=== PATIENT | female | born 1955 | race Caucasian/White ===

== ENCOUNTER 2020-08-07 17:14 | Inpatient (IN) ==
[2020-08-07] MEDS ORDERED: Ondansetron ODT 4 MG TAB.RAPDIS SL PRN (22:37)
[2020-08-08] MEDS: Furosemide 20 MG/2 ML VIAL IVP SCH ×2 (00:20→07:39)
[2020-08-08 04:15] LABS: Hematocrit 38.6 % (35.3-44.9); Hemoglobin 12.2 g/dL (11.5-15.4); Mean Corpuscular HGB Conc 31.6 g/dL (31.6-35.5); Mean Corpuscular Hemoglobin 28.5 pg (28.0-33.3); Mean Corpuscular Volume 90.2 fL (83.0-100.0); Platelet Count 253 K/mcL (140-400); Red Blood Count 4.28 M/mcL (3.82-4.97); Red Cell Distribution Width 14.5 % (11.5-14.5); White Blood Count 6.1 K/mcL (4.3-11.1)
[2020-08-08 04:32] LABS: BUN/Creatinine Ratio 24 (6-26); Blood Urea Nitrogen 14 mg/dL (8-23); Calcium 8.4 mg/dL (8.6-10.3); Carbon Dioxide 20 mEq/L (23-29); Chloride 101 mEq/L (98-107); Glucose 218 mg/dL (70-105); Osmolality,Calculated 287 (280-300); Sodium 135 mEq/L (136-145); eGFR For African Americans > 60 (> 60); eGFR For Non-African Americans > 60 (> 60)
[2020-08-08] MEDS: *HR* Enoxaparin 40 MG/0.4 ML SYRINGE SQ SCH (06:41)
[2020-08-08] MEDS: Dexamethasone 4 MG/ML VIAL IVP SCH (07:39)
[2020-08-08] MEDS: Acetaminophen 325 MG TABLET PO PRN (07:50)
[2020-08-09] MEDS: *HR* Enoxaparin 40 MG/0.4 ML SYRINGE SQ SCH (05:43)
[2020-08-09] MEDS: Acetaminophen 325 MG TABLET PO PRN ×2 (05:46→22:34)
[2020-08-09 06:07] LABS: Basophils % 0.1 %; Hematocrit 38.1 % (35.3-44.9); Immature Granulocytes % 0.8 % (0-4); Lymphocytes % 6.4 %; Mean Corpuscular HGB Conc 31.5 g/dL (31.6-35.5); Mean Corpuscular Hemoglobin 28.8 pg (28.0-33.3); Mean Corpuscular Volume 91.4 fL (83.0-100.0); Mean Platelet Volume 10.6 fL (9.4-12.4); Monocytes # 0.7 K/mcL (0.0-1.3); Monocytes % 4.6 %; Neutrophils # 13.2 K/mcL (1.6-8.9); Platelet Count 305 K/mcL (140-400); Red Blood Count 4.17 M/mcL (3.82-4.97); Red Cell Distribution Width 14.4 % (11.5-14.5); Segmented Neutrophils % 88.1 %
[2020-08-09] MEDS: Aspirin Enteric Coated 81 MG Tablet PO SCH (07:19)
[2020-08-09] MEDS: Dexamethasone 4 MG/ML VIAL IVP SCH (07:19)
[2020-08-09] MEDS: Furosemide 20 MG/2 ML VIAL IVP SCH (07:19)
[2020-08-09 10:57] LABS: BUN/Creatinine Ratio 29 (6-26); Blood Urea Nitrogen 23 mg/dL (8-23); Carbon Dioxide 22 mEq/L (23-29); Chloride 102 mEq/L (98-107); Glucose 194 mg/dL (70-105); Osmolality,Calculated 293 (280-300); Potassium 4.3 mEq/L (3.5-5.1); Sodium 137 mEq/L (136-145); eGFR For African Americans > 60 (> 60); eGFR For Non-African Americans > 60 (> 60)
[2020-08-09] MEDS: Artificial Tears SOLN 15 ML BOTTLE BOTH EYES SCH (12:43)
[2020-08-10] MEDS: Artificial Tears SOLN 15 ML BOTTLE BOTH EYES SCH ×2 (01:55→19:56)
[2020-08-10] MEDS: *HR* Enoxaparin 40 MG/0.4 ML SYRINGE SQ SCH (05:54)
[2020-08-10 06:47] LABS: Basophils % 0.2 %; Hemoglobin 11.5 g/dL (11.5-15.4); Immature Granulocytes % 2.2 % (0-4); Lymphocytes # 1.1 K/mcL (0.6-4.6); Lymphocytes % 9.2 %; Mean Corpuscular HGB Conc 31.9 g/dL (31.6-35.5); Mean Corpuscular Hemoglobin 28.8 pg (28.0-33.3); Mean Corpuscular Volume 90.2 fL (83.0-100.0); Mean Platelet Volume 10.5 fL (9.4-12.4); Monocytes # 0.6 K/mcL (0.0-1.3); Monocytes % 5.5 %; Neutrophils # 9.4 K/mcL (1.6-8.9); Platelet Count 307 K/mcL (140-400); Red Blood Count 3.99 M/mcL (3.82-4.97); Red Cell Distribution Width 14.4 % (11.5-14.5); Segmented Neutrophils % 82.9 %; White Blood Count 11.4 K/mcL (4.3-11.1)
[2020-08-10 07:07] LABS: BUN/Creatinine Ratio 46 (6-26); Blood Urea Nitrogen 27 mg/dL (8-23); Calcium 8.8 mg/dL (8.6-10.3); Carbon Dioxide 26 mEq/L (23-29); Chloride 103 mEq/L (98-107); Glucose 132 mg/dL (70-105); Osmolality,Calculated 291 (280-300); Potassium 4.3 mEq/L (3.5-5.1); Sodium 137 mEq/L (136-145); eGFR For African Americans > 60 (> 60); eGFR For Non-African Americans > 60 (> 60)
[2020-08-10] MEDS ORDERED: Furosemide 20 MG TABLET PO SCH (09:00)
[2020-08-10] MEDS: Spironolactone 25 MG TABLET PO SCH (10:08)
[2020-08-10] MEDS: Aspirin Enteric Coated 81 MG Tablet PO SCH (10:08)
[2020-08-10] MEDS: Dexamethasone 4 MG/ML VIAL IVP SCH (10:09)
[2020-08-10] MEDS: Furosemide 40 MG/4 ML VIAL IVP SCH (10:09)
[2020-08-10] MEDS: Acetaminophen 325 MG TABLET PO PRN (10:43)
[2020-08-10 15:24] LABS: Estimated Average Glucose 157 mg/dl
[2020-08-11] MEDS ORDERED: 0.9 % Sodium Chloride 250 ML ONE (00:06)
[2020-08-11] MEDS: Acetaminophen 325 MG TABLET PO PRN ×2 (03:33→20:37)
[2020-08-11] MEDS: *HR* Enoxaparin 40 MG/0.4 ML SYRINGE SQ SCH (08:01)
[2020-08-11] MEDS: Aspirin Enteric Coated 81 MG Tablet PO SCH (08:02)
[2020-08-11] MEDS: Spironolactone 25 MG TABLET PO SCH (08:02)
[2020-08-11] MEDS: Dexamethasone 4 MG/ML VIAL IVP SCH (08:02)
[2020-08-11] MEDS ORDERED: *HR* LORazepam 2 MG/ML VIAL ONE (08:36)
[2020-08-11] MEDS ORDERED: *HR* LORazepam 2 MG/ML VIAL IVP ONE (09:29)
[2020-08-11 10:22] LABS: Basophils # 0.1 K/mcL (0.0-0.2); Basophils % 0.4 %; Eosinophils % 0.1 %; Hematocrit 37.2 % (35.3-44.9); Hemoglobin 11.6 g/dL (11.5-15.4); Immature Granulocytes % 3.9 % (0-4); Lymphocytes % 7.1 %; Mean Corpuscular HGB Conc 31.2 g/dL (31.6-35.5); Mean Corpuscular Hemoglobin 28.4 pg (28.0-33.3); Mean Corpuscular Volume 91.2 fL (83.0-100.0); Mean Platelet Volume 10.8 fL (9.4-12.4); Monocytes # 0.6 K/mcL (0.0-1.3); Monocytes % 4.4 %; Neutrophils # 11.3 K/mcL (1.6-8.9); Platelet Count 316 K/mcL (140-400); Red Blood Count 4.08 M/mcL (3.82-4.97); Red Cell Distribution Width 14.1 % (11.5-14.5); Segmented Neutrophils % 84.1 %; White Blood Count 13.5 K/mcL (4.3-11.1)
[2020-08-11 10:41] LABS: BUN/Creatinine Ratio 47 (6-26); Blood Urea Nitrogen 26 mg/dL (8-23); Calcium 8.9 mg/dL (8.6-10.3); Carbon Dioxide 27 mEq/L (23-29); Chloride 101 mEq/L (98-107); Glucose 104 mg/dL (70-105); Osmolality,Calculated 291 (280-300); Potassium 4.5 mEq/L (3.5-5.1); Sodium 138 mEq/L (136-145); eGFR For African Americans > 60 (> 60); eGFR For Non-African Americans > 60 (> 60)
[2020-08-11] MEDS: Furosemide 40 MG/4 ML VIAL IVP SCH (11:22)
[2020-08-11] MEDS ORDERED: *HR* Heparin 5,000 UNIT/ML VIAL IVP PRN ×2 (13:11)
[2020-08-11] MEDS ORDERED: *HR* Heparin 5,000 UNIT/ML VIAL IVP ONE (13:11)
[2020-08-11 14:00] LABS: Hematocrit 39.5 % (35.3-44.9); Hemoglobin 12.2 g/dL (11.5-15.4); Mean Corpuscular HGB Conc 30.9 g/dL (31.6-35.5); Mean Corpuscular Hemoglobin 28.2 pg (28.0-33.3); Mean Corpuscular Volume 91.2 fL (83.0-100.0); Mean Platelet Volume 10.8 fL (9.4-12.4); Platelet Count 337 K/mcL (140-400); Red Blood Count 4.33 M/mcL (3.82-4.97); Red Cell Distribution Width 14.3 % (11.5-14.5); White Blood Count 14.4 K/mcL (4.3-11.1)
[2020-08-11 14:02] LABS: Heparin anti-factor XA UFH 0.12 IU/mL (0.30-0.70)
[2020-08-11 14:03] LABS: INR 1.2; Prothrombin Time 13.9 Seconds (9.4-12.1)
[2020-08-11] MEDS: Heparin 25,000UNIT/250ML 1/2NS 25,000 UNIT/250 ML IV.SOLN IVC SCH (14:41)
[2020-08-11] MEDS: Artificial Tears SOLN 15 ML BOTTLE BOTH EYES SCH (20:15)
[2020-08-12 04:25] LABS: Hematocrit 36.4 % (35.3-44.9); Hemoglobin 11.7 g/dL (11.5-15.4); Mean Corpuscular HGB Conc 32.1 g/dL (31.6-35.5); Mean Corpuscular Hemoglobin 29.1 pg (28.0-33.3); Mean Corpuscular Volume 90.5 fL (83.0-100.0); Mean Platelet Volume 10.6 fL (9.4-12.4); Platelet Count 313 K/mcL (140-400); Red Blood Count 4.02 M/mcL (3.82-4.97); Red Cell Distribution Width 14.2 % (11.5-14.5); White Blood Count 14.1 K/mcL (4.3-11.1)
[2020-08-12] MEDS: Benzonatate 100 MG CAPSULE PO PRN (04:33)
[2020-08-12 05:04] LABS: Lymphocytes # 1.4 K/mcL (0.6-4.6); Monocytes # 0.6 K/mcL (0.0-1.3); Neutrophils # 11.8 K/mcL (1.6-8.9)
[2020-08-12 05:05] LABS: Platelet Estimate Normal (Normal)
[2020-08-12] MEDS: Furosemide 40 MG/4 ML VIAL IVP SCH ×2 (09:55→20:00)
[2020-08-12] MEDS: Dexamethasone Sodium Phos/PF 10 MG/ML VIAL IVP SCH (09:55)
[2020-08-12] MEDS: Aspirin Enteric Coated 81 MG Tablet PO SCH (09:56)
[2020-08-12] MEDS: Spironolactone 25 MG TABLET PO SCH (09:56)
[2020-08-12 10:37] LABS: BUN/Creatinine Ratio 48 (6-26); Blood Urea Nitrogen 28 mg/dL (8-23); Calcium 8.6 mg/dL (8.6-10.3); Carbon Dioxide 25 mEq/L (23-29); Chloride 97 mEq/L (98-107); Glucose 162 mg/dL (70-105); Osmolality,Calculated 287 (280-300); Potassium 4.2 mEq/L (3.5-5.1); Sodium 134 mEq/L (136-145); eGFR For African Americans > 60 (> 60); eGFR For Non-African Americans > 60 (> 60)
[2020-08-12] MEDS: Acetaminophen 325 MG TABLET PO PRN (19:59)
[2020-08-12] MEDS: Artificial Tears SOLN 15 ML BOTTLE BOTH EYES SCH (20:00)
[2020-08-13] MEDS: Benzonatate 100 MG CAPSULE PO PRN ×2 (02:32→22:09)
[2020-08-13 05:35] LABS: Hematocrit 37.3 % (35.3-44.9); Hemoglobin 12.1 g/dL (11.5-15.4); Mean Corpuscular HGB Conc 32.4 g/dL (31.6-35.5); Mean Corpuscular Hemoglobin 28.9 pg (28.0-33.3); Mean Corpuscular Volume 89.2 fL (83.0-100.0); Mean Platelet Volume 10.7 fL (9.4-12.4); Platelet Count 365 K/mcL (140-400); Red Blood Count 4.18 M/mcL (3.82-4.97); Red Cell Distribution Width 13.6 % (11.5-14.5); White Blood Count 15.3 K/mcL (4.3-11.1)
[2020-08-13 05:45] LABS: Heparin anti-factor XA UFH 0.47 IU/mL (0.30-0.70)
[2020-08-13 06:05] LABS: BUN/Creatinine Ratio 44 (6-26); Blood Urea Nitrogen 26 mg/dL (8-23); Calcium 8.9 mg/dL (8.6-10.3); Carbon Dioxide 26 mEq/L (23-29); Chloride 94 mEq/L (98-107); Glucose 223 mg/dL (70-105); Osmolality,Calculated 290 (280-300); Potassium 4.1 mEq/L (3.5-5.1); Sodium 134 mEq/L (136-145); eGFR For African Americans > 60 (> 60); eGFR For Non-African Americans > 60 (> 60)
[2020-08-13 06:19] LABS: Lymphocytes # 0.6 K/mcL (0.6-4.6); Monocytes # 0.3 K/mcL (0.0-1.3); Neutrophils # 14.4 K/mcL (1.6-8.9)
[2020-08-13] MEDS: Furosemide 40 MG/4 ML VIAL IVP SCH ×2 (09:49→22:09)
[2020-08-13] MEDS: Azithromycin 250 MG TABLET PO SCH (09:49)
[2020-08-13] MEDS: Aspirin Enteric Coated 81 MG Tablet PO SCH (09:50)
[2020-08-13] MEDS: Spironolactone 25 MG TABLET PO SCH (09:50)
[2020-08-13] MEDS: Dexamethasone Sodium Phos/PF 10 MG/ML VIAL IVP SCH (09:50)
[2020-08-13] MEDS: Heparin 25,000UNIT/250ML 1/2NS 25,000 UNIT/250 ML IV.SOLN IVC SCH ×3 (10:11→10:58)
[2020-08-13] MEDS: Acetaminophen 325 MG TABLET PO PRN (22:09)
[2020-08-13] MEDS: Cefdinir 300 MG CAPSULE PO SCH (22:10)
[2020-08-13] MEDS: Artificial Tears SOLN 15 ML BOTTLE BOTH EYES SCH (22:10)
[2020-08-14] MEDS ORDERED: *HR* LORazepam 2 MG/ML VIAL IVP ONE ×2 (01:35→22:52)
[2020-08-14 06:38] LABS: Hematocrit 37.1 % (35.3-44.9); Hemoglobin 12.1 g/dL (11.5-15.4); Lymphocytes # 1.4 K/mcL (0.6-4.6); Mean Corpuscular HGB Conc 32.6 g/dL (31.6-35.5); Mean Corpuscular Hemoglobin 29.5 pg (28.0-33.3); Mean Corpuscular Volume 90.5 fL (83.0-100.0); Mean Platelet Volume 10.8 fL (9.4-12.4); Platelet Count 408 K/mcL (140-400); Red Cell Distribution Width 13.7 % (11.5-14.5); White Blood Count 17.2 K/mcL (4.3-11.1)
[2020-08-14 06:55] LABS: BUN/Creatinine Ratio 44 (6-26); Blood Urea Nitrogen 31 mg/dL (8-23); Calcium 9.2 mg/dL (8.6-10.3); Carbon Dioxide 29 mEq/L (23-29); Chloride 93 mEq/L (98-107); Glucose 227 mg/dL (70-105); Magnesium 2.2 mg/dL (1.6-2.6); Monocytes # 0.7 K/mcL (0.0-1.3); Neutrophils # 14.8 K/mcL (1.6-8.9); Osmolality,Calculated 288 (280-300); Potassium 4.5 mEq/L (3.5-5.1); Sodium 132 mEq/L (136-145); eGFR For African Americans > 60 (> 60); eGFR For Non-African Americans > 60 (> 60)
[2020-08-14] MEDS: Cefdinir 300 MG CAPSULE PO SCH ×2 (09:41→21:52)
[2020-08-14] MEDS: Aspirin Enteric Coated 81 MG Tablet PO SCH (09:41)
[2020-08-14] MEDS: Azithromycin 250 MG TABLET PO SCH (09:41)
[2020-08-14] MEDS: Dexamethasone Sodium Phos/PF 10 MG/ML VIAL IVP SCH (09:42)
[2020-08-14] MEDS: Furosemide 40 MG/4 ML VIAL IVP SCH ×2 (09:42→21:53)
[2020-08-14] MEDS: Heparin 25,000UNIT/250ML 1/2NS 25,000 UNIT/250 ML IV.SOLN IVC SCH ×2 (09:43→12:32)
[2020-08-14] MEDS: Acetaminophen 325 MG TABLET PO PRN (21:52)
[2020-08-14] MEDS: Benzonatate 100 MG CAPSULE PO PRN (21:52)
[2020-08-14] MEDS: Artificial Tears SOLN 15 ML BOTTLE BOTH EYES SCH (21:53)
[2020-08-15 04:21] LABS: Hematocrit 38.7 % (35.3-44.9); Hemoglobin 12.5 g/dL (11.5-15.4); Mean Corpuscular HGB Conc 32.3 g/dL (31.6-35.5); Mean Corpuscular Hemoglobin 29.3 pg (28.0-33.3); Mean Corpuscular Volume 90.6 fL (83.0-100.0); Mean Platelet Volume 10.7 fL (9.4-12.4); Nucleated Red Blood Cells 0.1 /100 WBC (0); Platelet Count 468 K/mcL (140-400); Red Blood Count 4.27 M/mcL (3.82-4.97); Red Cell Distribution Width 13.6 % (11.5-14.5); White Blood Count 18.9 K/mcL (4.3-11.1)
[2020-08-15 04:37] LABS: BUN/Creatinine Ratio 62 (6-26); Blood Urea Nitrogen 49 mg/dL (8-23); Carbon Dioxide 29 mEq/L (23-29); Chloride 91 mEq/L (98-107); Glucose 237 mg/dL (70-105); Osmolality,Calculated 293 (280-300); Sodium 131 mEq/L (136-145); eGFR For African Americans > 60 (> 60); eGFR For Non-African Americans > 60 (> 60)
[2020-08-15 04:45] LABS: Magnesium 2.4 mg/dL (1.6-2.6)
[2020-08-15 05:40] LABS: Neutrophils # 15.5 K/mcL (1.6-8.9); Platelet Estimate Normal (Normal)
[2020-08-15] MEDS: Azithromycin 250 MG TABLET PO SCH (08:11)
[2020-08-15] MEDS: Dexamethasone Sodium Phos/PF 10 MG/ML VIAL IVP SCH (08:11)
[2020-08-15] MEDS: Cefdinir 300 MG CAPSULE PO SCH ×2 (08:12→21:39)
[2020-08-15] MEDS: Furosemide 40 MG/4 ML VIAL IVP SCH (08:12)
[2020-08-15] MEDS: Aspirin Enteric Coated 81 MG Tablet PO SCH (08:12)
[2020-08-15] MEDS: Heparin 25,000UNIT/250ML 1/2NS 25,000 UNIT/250 ML IV.SOLN IVC SCH (09:22)
[2020-08-15] MEDS: Artificial Tears SOLN 15 ML BOTTLE BOTH EYES SCH (21:39)
[2020-08-15] MEDS: Benzonatate 100 MG CAPSULE PO PRN (21:39)
[2020-08-15] MEDS: Acetaminophen 325 MG TABLET PO PRN (21:39)
[2020-08-16] MEDS: Heparin 25,000UNIT/250ML 1/2NS 25,000 UNIT/250 ML IV.SOLN IVC SCH (03:14)
[2020-08-16 04:31] LABS: Hematocrit 37.9 % (35.3-44.9); Hemoglobin 12.3 g/dL (11.5-15.4); Mean Corpuscular HGB Conc 32.5 g/dL (31.6-35.5); Mean Corpuscular Hemoglobin 28.9 pg (28.0-33.3); Mean Corpuscular Volume 89.2 fL (83.0-100.0); Mean Platelet Volume 10.9 fL (9.4-12.4); Nucleated Red Blood Cells 0.1 /100 WBC (0); Platelet Count 468 K/mcL (140-400); Red Blood Count 4.25 M/mcL (3.82-4.97); Red Cell Distribution Width 13.4 % (11.5-14.5)
[2020-08-16 04:39] LABS: BUN/Creatinine Ratio 62 (6-26); Blood Urea Nitrogen 42 mg/dL (8-23); Calcium 8.9 mg/dL (8.6-10.3); Carbon Dioxide 28 mEq/L (23-29); Chloride 90 mEq/L (98-107); Glucose 247 mg/dL (70-105); Magnesium 2.3 mg/dL (1.6-2.6); Osmolality,Calculated 287 (280-300); Potassium 4.6 mEq/L (3.5-5.1); Sodium 129 mEq/L (136-145); eGFR For African Americans > 60 (> 60); eGFR For Non-African Americans > 60 (> 60)
[2020-08-16 05:55] LABS: Lymphocytes # 1.3 K/mcL (0.6-4.6); Monocytes # 0.8 K/mcL (0.0-1.3); Neutrophils # 18.9 K/mcL (1.6-8.9); Platelet Estimate Normal (Normal)
[2020-08-16] MEDS: Dexamethasone Sodium Phos/PF 10 MG/ML VIAL IVP SCH (09:59)
[2020-08-16] MEDS: Furosemide 40 MG/4 ML VIAL IVP SCH (10:00)
[2020-08-16] MEDS: Aspirin Enteric Coated 81 MG Tablet PO SCH (10:00)
[2020-08-16] MEDS: Azithromycin 250 MG TABLET PO SCH (10:00)
[2020-08-16] MEDS: Piperacillin/Tazobactam 3.375 GM in 0.9 % Sodium Chloride Mini Bag 100 ML IVPB SCH ×3 (10:00→22:58)
[2020-08-16] MEDS: *HR* Enoxaparin 40 MG/0.4 ML SYRINGE SQ SCH (15:02)
[2020-08-16] MEDS: Fluconazole 150 MG TABLET PO SCH (18:55)
[2020-08-16] MEDS: Lactobacillus 1 EACH CAP.SPRINK PO SCH (21:02)
[2020-08-16] MEDS: Artificial Tears SOLN 15 ML BOTTLE BOTH EYES SCH (21:02)
[2020-08-17 04:23] LABS: Basophils # 0.1 K/mcL (0.0-0.2); Basophils % 0.4 %; Eosinophils % 0.1 %; Hematocrit 38.8 % (35.3-44.9); Hemoglobin 12.4 g/dL (11.5-15.4); Immature Granulocytes % 7.3 % (0-4); Lymphocytes # 1.1 K/mcL (0.6-4.6); Lymphocytes % 5.1 %; Mean Corpuscular Hemoglobin 28.4 pg (28.0-33.3); Mean Corpuscular Volume 88.8 fL (83.0-100.0); Monocytes # 0.8 K/mcL (0.0-1.3); Monocytes % 3.8 %; Platelet Count 486 K/mcL (140-400); Red Blood Count 4.37 M/mcL (3.82-4.97); Red Cell Distribution Width 13.5 % (11.5-14.5); Segmented Neutrophils % 83.3 %; White Blood Count 21.2 K/mcL (4.3-11.1)
[2020-08-17 04:27] LABS: Neutrophils # 17.7 K/mcL (1.6-8.9)
[2020-08-17 04:39] LABS: BUN/Creatinine Ratio 47 (6-26); Blood Urea Nitrogen 35 mg/dL (8-23); Carbon Dioxide 25 mEq/L (23-29); Chloride 94 mEq/L (98-107); Glucose 269 mg/dL (70-105); Magnesium 2.4 mg/dL (1.6-2.6); Osmolality,Calculated 291 (280-300); Potassium 5.3 mEq/L (3.5-5.1); Sodium 132 mEq/L (136-145); eGFR For African Americans > 60 (> 60); eGFR For Non-African Americans > 60 (> 60)
[2020-08-17] MEDS: Aspirin Enteric Coated 81 MG Tablet PO SCH (08:44)
[2020-08-17] MEDS: Dexamethasone Sodium Phos/PF 10 MG/ML VIAL IVP SCH (08:44)
[2020-08-17] MEDS: Lactobacillus 1 EACH CAP.SPRINK PO SCH ×2 (08:44→20:17)
[2020-08-17] MEDS: Furosemide 40 MG/4 ML VIAL IVP SCH (08:45)
[2020-08-17] MEDS: *HR* Enoxaparin 40 MG/0.4 ML SYRINGE SQ SCH (08:45)
[2020-08-17] MEDS: Fluconazole 150 MG TABLET PO SCH (08:45)
[2020-08-17] MEDS: Piperacillin/Tazobactam 3.375 GM in 0.9 % Sodium Chloride Mini Bag 100 ML IVPB SCH ×3 (08:46→23:30)
[2020-08-17] MEDS: Insulin LISPRO 300 UNITS/3 ML VIAL SQ SCH (17:08)
[2020-08-17] MEDS: Artificial Tears SOLN 15 ML BOTTLE BOTH EYES SCH (20:23)
[2020-08-17] MEDS ORDERED: Insulin LISPRO 300 UNITS/3 ML VIAL SQ SCH (22:15)
[2020-08-18 03:43] LABS: Hematocrit 38.6 % (35.3-44.9); Hemoglobin 12.8 g/dL (11.5-15.4); Mean Corpuscular HGB Conc 33.2 g/dL (31.6-35.5); Mean Corpuscular Hemoglobin 29.2 pg (28.0-33.3); Mean Corpuscular Volume 87.9 fL (83.0-100.0); Mean Platelet Volume 10.6 fL (9.4-12.4); Platelet Count 484 K/mcL (140-400); Red Blood Count 4.39 M/mcL (3.82-4.97); Red Cell Distribution Width 13.4 % (11.5-14.5); White Blood Count 24.3 K/mcL (4.3-11.1)
[2020-08-18 03:53] LABS: INR 1.1; Prothrombin Time 12.8 Seconds (9.4-12.1)
[2020-08-18] MEDS: Ipratropium 1 PUFF INHALER IH SCH ×4 (03:54→20:19)
[2020-08-18 03:55] LABS: Activated Partial Thrombo Time 25.3 Seconds (26.0-36.0)
[2020-08-18 04:06] LABS: Alanine Aminotransferase 19 Units/L (7-52); Albumin 3.4 g/dL (3.5-5.7); Alkaline Phosphatase 64 Units/L (34-104); Aspartate Amino Transferase 12 Units/L (13-39); BUN/Creatinine Ratio 46 (6-26); Blood Urea Nitrogen 36 mg/dL (8-23); C-Reactive Protein 17 mg/L (Less than 10); Calcium 8.9 mg/dL (8.6-10.3); Carbon Dioxide 25 mEq/L (23-29); Chloride 90 mEq/L (98-107); Globulin 3.5 g/dL (2.4-3.5); Glucose 265 mg/dL (70-105); Lactate Dehydrogenase 290 Units/L (140-271); Magnesium 2.3 mg/dL (1.6-2.6); Osmolality,Calculated 282 (280-300); Potassium 4.9 mEq/L (3.5-5.1); Sodium 127 mEq/L (136-145); Total Protein 6.9 g/dL (6.4-8.9); eGFR For African Americans > 60 (> 60); eGFR For Non-African Americans > 60 (> 60)
[2020-08-18 04:23] LABS: Ferritin 162 ng/mL (10-120)
[2020-08-18] MEDS: Insulin LISPRO 300 UNITS/3 ML VIAL SQ SCH ×3 (08:12→16:39)
[2020-08-18] MEDS: *HR* Enoxaparin 40 MG/0.4 ML SYRINGE SQ SCH ×2 (08:12→20:37)
[2020-08-18] MEDS: Aspirin Enteric Coated 81 MG Tablet PO SCH (08:13)
[2020-08-18] MEDS: Lactobacillus 1 EACH CAP.SPRINK PO SCH ×2 (08:13→20:38)
[2020-08-18] MEDS: Piperacillin/Tazobactam 3.375 GM in 0.9 % Sodium Chloride Mini Bag 100 ML IVPB SCH (08:13)
[2020-08-18] MEDS: Dexamethasone Sodium Phos/PF 10 MG/ML VIAL IVP SCH (08:13)
[2020-08-18] MEDS: Fluconazole 150 MG TABLET PO SCH (08:14)
[2020-08-18] MEDS: Furosemide 20 MG TABLET PO SCH (08:14)
[2020-08-18] MEDS: Artificial Tears SOLN 15 ML BOTTLE BOTH EYES SCH (20:38)
[2020-08-19] MEDS: Ipratropium 1 PUFF INHALER IH SCH ×4 (04:34→20:08)
[2020-08-19 05:22] LABS: Mean Platelet Volume 10.6 fL (9.4-12.4); Red Cell Distribution Width 13.6 % (11.5-14.5)
[2020-08-19 05:23] LABS: Hematocrit 39.7 % (35.3-44.9); Hemoglobin 12.9 g/dL (11.5-15.4); Mean Corpuscular HGB Conc 32.5 g/dL (31.6-35.5); Mean Corpuscular Hemoglobin 29.1 pg (28.0-33.3); Mean Corpuscular Volume 89.4 fL (83.0-100.0); Platelet Count 487 K/mcL (140-400); Red Blood Count 4.44 M/mcL (3.82-4.97); White Blood Count 24.9 K/mcL (4.3-11.1)
[2020-08-19 05:43] LABS: BUN/Creatinine Ratio 47 (6-26); Blood Urea Nitrogen 32 mg/dL (8-23); C-Reactive Protein 8 mg/L (Less than 10); Calcium 8.9 mg/dL (8.6-10.3); Carbon Dioxide 24 mEq/L (23-29); Chloride 92 mEq/L (98-107); Glucose 291 mg/dL (70-105); Lactate Dehydrogenase 308 Units/L (140-271); Magnesium 2.4 mg/dL (1.6-2.6); Osmolality,Calculated 282 (280-300); Phosphorous 3.5 mg/dL (2.7-4.5); Potassium 4.8 mEq/L (3.5-5.1); Sodium 127 mEq/L (136-145); eGFR For African Americans > 60 (> 60); eGFR For Non-African Americans > 60 (> 60)
[2020-08-19 06:01] LABS: Ferritin 184 ng/mL (10-120)
[2020-08-19] MEDS: Furosemide 20 MG TABLET PO SCH (08:46)
[2020-08-19] MEDS: Dexamethasone Sodium Phos/PF 10 MG/ML VIAL IVP SCH (08:46)
[2020-08-19] MEDS: Insulin LISPRO 300 UNITS/3 ML VIAL SQ SCH ×3 (08:46→18:01)
[2020-08-19] MEDS: Lactobacillus 1 EACH CAP.SPRINK PO SCH ×2 (08:46→20:43)
[2020-08-19] MEDS: Aspirin Enteric Coated 81 MG Tablet PO SCH (08:46)
[2020-08-19] MEDS: *HR* Enoxaparin 40 MG/0.4 ML SYRINGE SQ SCH ×2 (08:47→20:42)
[2020-08-19] MEDS ORDERED: 0.9 % Sodium Chloride 250 ML ONE (13:25)
[2020-08-19] MEDS: Insulin DETEMIR 100 UNIT/ML X5UNITS SQ SCH (14:13)
[2020-08-19] MEDS: Artificial Tears SOLN 15 ML BOTTLE BOTH EYES SCH (20:42)
[2020-08-20] MEDS: Benzonatate 100 MG CAPSULE PO PRN (00:10)
[2020-08-20] MEDS: Ipratropium 1 PUFF INHALER IH SCH ×5 (04:04→23:46)
[2020-08-20 06:13] LABS: Hematocrit 37.5 % (35.3-44.9); Hemoglobin 12.2 g/dL (11.5-15.4); Mean Corpuscular HGB Conc 32.5 g/dL (31.6-35.5); Mean Corpuscular Hemoglobin 29.1 pg (28.0-33.3); Mean Corpuscular Volume 89.5 fL (83.0-100.0); Mean Platelet Volume 10.7 fL (9.4-12.4); Platelet Count 434 K/mcL (140-400); Red Blood Count 4.19 M/mcL (3.82-4.97); Red Cell Distribution Width 13.7 % (11.5-14.5)
[2020-08-20 06:38] LABS: BUN/Creatinine Ratio 44 (6-26); Blood Urea Nitrogen 28 mg/dL (8-23); Calcium 8.7 mg/dL (8.6-10.3); Carbon Dioxide 24 mEq/L (23-29); Chloride 95 mEq/L (98-107); Glucose 206 mg/dL (70-105); Lactate Dehydrogenase 301 Units/L (140-271); Magnesium 2.2 mg/dL (1.6-2.6); Osmolality,Calculated 279 (280-300); Phosphorous 3.4 mg/dL (2.7-4.5); Potassium 4.7 mEq/L (3.5-5.1); Sodium 129 mEq/L (136-145); eGFR For African Americans > 60 (> 60); eGFR For Non-African Americans > 60 (> 60)
[2020-08-20 06:48] LABS: Ferritin 171 ng/mL (10-120)
[2020-08-20 09:13] LABS: C-Reactive Protein < 5 mg/L (Less than 10)
[2020-08-20] MEDS: *HR* Enoxaparin 40 MG/0.4 ML SYRINGE SQ SCH ×2 (10:11→21:10)
[2020-08-20] MEDS: Lactobacillus 1 EACH CAP.SPRINK PO SCH ×2 (10:11→21:10)
[2020-08-20] MEDS: Aspirin Enteric Coated 81 MG Tablet PO SCH (10:11)
[2020-08-20] MEDS: Dexamethasone Sodium Phos/PF 10 MG/ML VIAL IVP SCH (10:12)
[2020-08-20] MEDS: Insulin DETEMIR 100 UNIT/ML X5UNITS SQ SCH (10:16)
[2020-08-20] MEDS: Insulin LISPRO 300 UNITS/3 ML VIAL SQ SCH ×3 (10:17→16:44)
[2020-08-20] MEDS: Sennosides/Docusate Sodium TABLET PO SCH (16:44)
[2020-08-20] MEDS: Artificial Tears SOLN 15 ML BOTTLE BOTH EYES SCH (21:10)
[2020-08-21 01:16] LABS: Basophils % 0.2 %; Eosinophils % 0.1 %; Hematocrit 36.8 % (35.3-44.9); Hemoglobin 12.2 g/dL (11.5-15.4); Immature Granulocytes % 3.4 % (0-4); Lymphocytes # 0.6 K/mcL (0.6-4.6); Lymphocytes % 3.2 %; Mean Corpuscular HGB Conc 33.2 g/dL (31.6-35.5); Mean Corpuscular Hemoglobin 29.5 pg (28.0-33.3); Mean Corpuscular Volume 89.1 fL (83.0-100.0); Mean Platelet Volume 10.6 fL (9.4-12.4); Monocytes # 0.8 K/mcL (0.0-1.3); Monocytes % 4.5 %; Neutrophils # 16.6 K/mcL (1.6-8.9); Platelet Count 419 K/mcL (140-400); Red Blood Count 4.13 M/mcL (3.82-4.97); Red Cell Distribution Width 13.7 % (11.5-14.5); Segmented Neutrophils % 88.6 %; White Blood Count 18.8 K/mcL (4.3-11.1)
[2020-08-21 01:38] LABS: Alanine Aminotransferase 42 Units/L (7-52); Albumin 3.3 g/dL (3.5-5.7); Albumin/Globulin Ratio 1.1 (1.1-2.2); Alkaline Phosphatase 64 Units/L (34-104); Aspartate Amino Transferase 21 Units/L (13-39); BUN/Creatinine Ratio 48 (6-26); Bilirubin,Total 0.7 mg/dL (0.3-1.0); Blood Urea Nitrogen 29 mg/dL (8-23); C-Reactive Protein 5 mg/L (Less than 10); Calcium 8.4 mg/dL (8.6-10.3); Carbon Dioxide 22 mEq/L (23-29); Chloride 96 mEq/L (98-107); Glucose 266 mg/dL (70-105); Lactate Dehydrogenase 265 Units/L (140-271); Magnesium 2.2 mg/dL (1.6-2.6); Osmolality,Calculated 279 (280-300); Phosphorous 3.2 mg/dL (2.7-4.5); Potassium 4.4 mEq/L (3.5-5.1); Sodium 127 mEq/L (136-145); Total Protein 6.3 g/dL (6.4-8.9); eGFR For African Americans > 60 (> 60); eGFR For Non-African Americans > 60 (> 60)
[2020-08-21 01:55] LABS: Ferritin 183 ng/mL (10-120)
[2020-08-21] MEDS: Ipratropium 1 PUFF INHALER IH SCH ×6 (03:27→23:52)
[2020-08-21] MEDS: Aspirin Enteric Coated 81 MG Tablet PO SCH (08:23)
[2020-08-21] MEDS: Sennosides/Docusate Sodium TABLET PO SCH ×2 (08:23→20:25)
[2020-08-21] MEDS: Dexamethasone Sodium Phos/PF 10 MG/ML VIAL IVP SCH (08:23)
[2020-08-21] MEDS: Lactobacillus 1 EACH CAP.SPRINK PO SCH ×2 (08:23→20:25)
[2020-08-21] MEDS: *HR* Enoxaparin 40 MG/0.4 ML SYRINGE SQ SCH ×2 (08:24→20:25)
[2020-08-21] MEDS: Insulin LISPRO 300 UNITS/3 ML VIAL SQ SCH ×4 (08:24→21:17)
[2020-08-21] MEDS: Insulin DETEMIR 100 UNIT/ML X5UNITS SQ SCH (08:24)
[2020-08-21] MEDS ORDERED: MOM Conc 10 ML UD.LIQ PO ONE (11:48)
[2020-08-21] MEDS: Artificial Tears SOLN 15 ML BOTTLE BOTH EYES SCH (20:25)
[2020-08-21] MEDS: polyethylene glycoL 3350 17 GM POWD.PACK PO PRN (21:27)
[2020-08-22] MEDS: Ipratropium 1 PUFF INHALER IH SCH ×6 (03:26→23:40)
[2020-08-22 04:18] LABS: Basophils % 0.2 %; Eosinophils % 0.2 %; Hematocrit 36.8 % (35.3-44.9); Immature Granulocytes % 3.3 % (0-4); Lymphocytes % 5.7 %; Mean Corpuscular HGB Conc 32.6 g/dL (31.6-35.5); Mean Corpuscular Hemoglobin 29.3 pg (28.0-33.3); Mean Corpuscular Volume 89.8 fL (83.0-100.0); Mean Platelet Volume 10.4 fL (9.4-12.4); Monocytes # 0.9 K/mcL (0.0-1.3); Monocytes % 5.4 %; Neutrophils # 14.5 K/mcL (1.6-8.9); Platelet Count 377 K/mcL (140-400); Red Cell Distribution Width 13.8 % (11.5-14.5); Segmented Neutrophils % 85.2 %; White Blood Count 17.1 K/mcL (4.3-11.1)
[2020-08-22 04:39] LABS: Alanine Aminotransferase 31 Units/L (7-52); Albumin 3.2 g/dL (3.5-5.7); Albumin/Globulin Ratio 1.1 (1.1-2.2); Alkaline Phosphatase 60 Units/L (34-104); Aspartate Amino Transferase 16 Units/L (13-39); BUN/Creatinine Ratio 49 (6-26); Bilirubin,Total 0.8 mg/dL (0.3-1.0); Blood Urea Nitrogen 26 mg/dL (8-23); C-Reactive Protein < 5 mg/L (Less than 10); Calcium 8.4 mg/dL (8.6-10.3); Carbon Dioxide 26 mEq/L (23-29); Chloride 98 mEq/L (98-107); Globulin 2.8 g/dL (2.4-3.5); Glucose 142 mg/dL (70-105); Lactate Dehydrogenase 296 Units/L (140-271); Magnesium 2.4 mg/dL (1.6-2.6); Osmolality,Calculated 279 (280-300); Phosphorous 3.1 mg/dL (2.7-4.5); Potassium 4.7 mEq/L (3.5-5.1); Sodium 131 mEq/L (136-145); eGFR For African Americans > 60 (> 60); eGFR For Non-African Americans > 60 (> 60)
[2020-08-22 04:56] LABS: Ferritin 158 ng/mL (10-120)
[2020-08-22] MEDS: Lactobacillus 1 EACH CAP.SPRINK PO SCH ×2 (08:33→19:42)
[2020-08-22] MEDS: *HR* Enoxaparin 40 MG/0.4 ML SYRINGE SQ SCH ×2 (08:33→19:42)
[2020-08-22] MEDS: Dexamethasone Sodium Phos/PF 10 MG/ML VIAL IVP SCH (08:33)
[2020-08-22] MEDS: Sennosides/Docusate Sodium TABLET PO SCH ×2 (08:33→19:42)
[2020-08-22] MEDS: Aspirin Enteric Coated 81 MG Tablet PO SCH (08:33)
[2020-08-22] MEDS: Insulin LISPRO 300 UNITS/3 ML VIAL SQ SCH ×4 (08:34→20:12)
[2020-08-22] MEDS: Insulin DETEMIR 100 UNIT/ML X5UNITS SQ SCH (08:35)
[2020-08-22] MEDS ORDERED: MOM Conc 10 ML UD.LIQ PO ONE (10:46)
[2020-08-22] MEDS ORDERED: *HR* OxyCODONE/APAP 10/325 TABLET PO ONE (12:03)
[2020-08-22] MEDS: Fluticasone Propionate Nasal 50 MCG/SPRAY BOTTLE NS SCH ×2 (15:27→20:11)
[2020-08-22] MEDS: Saline Nasal Spray 44 ML BOTTLE NS PRN (15:28)
[2020-08-22] MEDS: Artificial Tears SOLN 15 ML BOTTLE BOTH EYES SCH (20:11)
[2020-08-22] MEDS: Acetaminophen 325 MG TABLET PO PRN (23:10)
[2020-08-23] MEDS: Ipratropium 1 PUFF INHALER IH SCH ×6 (03:10→23:50)
[2020-08-23 04:58] LABS: Basophils % 0.2 %; Eosinophils # 0.1 K/mcL (0.0-0.6); Eosinophils % 0.5 %; Hematocrit 37.9 % (35.3-44.9); Hemoglobin 12.2 g/dL (11.5-15.4); Immature Granulocytes % 3.1 % (0-4); Lymphocytes # 1.1 K/mcL (0.6-4.6); Lymphocytes % 6.2 %; Mean Corpuscular HGB Conc 32.2 g/dL (31.6-35.5); Mean Corpuscular Hemoglobin 28.8 pg (28.0-33.3); Mean Corpuscular Volume 89.6 fL (83.0-100.0); Mean Platelet Volume 10.6 fL (9.4-12.4); Monocytes # 0.8 K/mcL (0.0-1.3); Monocytes % 4.4 %; Neutrophils # 14.8 K/mcL (1.6-8.9); Platelet Count 367 K/mcL (140-400); Red Blood Count 4.23 M/mcL (3.82-4.97); Red Cell Distribution Width 14.3 % (11.5-14.5); Segmented Neutrophils % 85.6 %; White Blood Count 17.3 K/mcL (4.3-11.1)
[2020-08-23 05:20] LABS: Alanine Aminotransferase 27 Units/L (7-52); Albumin 3.2 g/dL (3.5-5.7); Albumin/Globulin Ratio 1.2 (1.1-2.2); Alkaline Phosphatase 61 Units/L (34-104); Aspartate Amino Transferase 15 Units/L (13-39); BUN/Creatinine Ratio 46 (6-26); Bilirubin,Total 0.9 mg/dL (0.3-1.0); Blood Urea Nitrogen 27 mg/dL (8-23); C-Reactive Protein 12 mg/L (Less than 10); Calcium 8.5 mg/dL (8.6-10.3); Carbon Dioxide 26 mEq/L (23-29); Chloride 99 mEq/L (98-107); Globulin 2.7 g/dL (2.4-3.5); Glucose 153 mg/dL (70-105); Lactate Dehydrogenase 283 Units/L (140-271); Magnesium 2.2 mg/dL (1.6-2.6); Osmolality,Calculated 282 (280-300); Phosphorous 3.6 mg/dL (2.7-4.5); Potassium 4.6 mEq/L (3.5-5.1); Sodium 132 mEq/L (136-145); Total Protein 5.9 g/dL (6.4-8.9); eGFR For African Americans > 60 (> 60); eGFR For Non-African Americans > 60 (> 60)
[2020-08-23 05:36] LABS: Ferritin 157 ng/mL (10-120)
[2020-08-23] MEDS: Insulin LISPRO 300 UNITS/3 ML VIAL SQ SCH ×4 (07:54→20:15)
[2020-08-23] MEDS: Cholecalciferol (D-3) 1,000 UNIT (25MCG) TABLET PO SCH (07:59)
[2020-08-23] MEDS: *HR* Enoxaparin 40 MG/0.4 ML SYRINGE SQ SCH ×2 (07:59→20:22)
[2020-08-23] MEDS: Multivit/Ca/Min/Fe/FA 1 TAB TABLET PO SCH (07:59)
[2020-08-23] MEDS: Sennosides/Docusate Sodium TABLET PO SCH ×2 (07:59→20:23)
[2020-08-23] MEDS: Aspirin Enteric Coated 81 MG Tablet PO SCH (07:59)
[2020-08-23] MEDS: Lactobacillus 1 EACH CAP.SPRINK PO SCH ×2 (08:00→20:22)
[2020-08-23] MEDS: Fluticasone Propionate Nasal 50 MCG/SPRAY BOTTLE NS SCH ×2 (08:00→20:16)
[2020-08-23] MEDS: Dexamethasone Sodium Phos/PF 10 MG/ML VIAL IVP SCH (08:00)
[2020-08-23] MEDS: Insulin DETEMIR 100 UNIT/ML X5UNITS SQ SCH (08:02)
[2020-08-23] MEDS: Artificial Tears SOLN 15 ML BOTTLE BOTH EYES SCH (20:16)
[2020-08-24] MEDS: Ipratropium 1 PUFF INHALER IH SCH ×6 (03:20→23:43)
[2020-08-24 06:34] LABS: Basophils % 0.2 %; Eosinophils # 0.4 K/mcL (0.0-0.6); Eosinophils % 2.9 %; Hematocrit 36.8 % (35.3-44.9); Hemoglobin 11.7 g/dL (11.5-15.4); Immature Granulocytes % 3.6 % (0-4); Lymphocytes # 1.7 K/mcL (0.6-4.6); Lymphocytes % 12.9 %; Mean Corpuscular HGB Conc 31.8 g/dL (31.6-35.5); Mean Corpuscular Volume 91.3 fL (83.0-100.0); Mean Platelet Volume 10.3 fL (9.4-12.4); Monocytes # 0.5 K/mcL (0.0-1.3); Monocytes % 3.6 %; Neutrophils # 10.3 K/mcL (1.6-8.9); Platelet Count 320 K/mcL (140-400); Red Blood Count 4.03 M/mcL (3.82-4.97); Red Cell Distribution Width 14.7 % (11.5-14.5); Segmented Neutrophils % 76.8 %; White Blood Count 13.4 K/mcL (4.3-11.1)
[2020-08-24 06:58] LABS: Alanine Aminotransferase 29 Units/L (7-52); Albumin/Globulin Ratio 1.2 (1.1-2.2); Alkaline Phosphatase 66 Units/L (34-104); Aspartate Amino Transferase 17 Units/L (13-39); BUN/Creatinine Ratio 46 (6-26); Bilirubin,Total 0.9 mg/dL (0.3-1.0); Blood Urea Nitrogen 26 mg/dL (8-23); Calcium 8.4 mg/dL (8.6-10.3); Carbon Dioxide 26 mEq/L (23-29); Chloride 100 mEq/L (98-107); Globulin 2.5 g/dL (2.4-3.5); Glucose 97 mg/dL (70-105); Lactate Dehydrogenase 300 Units/L (140-271); Magnesium 2.1 mg/dL (1.6-2.6); Osmolality,Calculated 283 (280-300); Phosphorous 3.7 mg/dL (2.7-4.5); Sodium 134 mEq/L (136-145); Total Protein 5.5 g/dL (6.4-8.9); eGFR For African Americans > 60 (> 60); eGFR For Non-African Americans > 60 (> 60)
[2020-08-24 07:10] LABS: Ferritin 134 ng/mL (10-120)
[2020-08-24] MEDS: Cholecalciferol (D-3) 1,000 UNIT (25MCG) TABLET PO SCH (07:54)
[2020-08-24] MEDS: Multivit/Ca/Min/Fe/FA 1 TAB TABLET PO SCH (07:54)
[2020-08-24] MEDS: Lactobacillus 1 EACH CAP.SPRINK PO SCH ×2 (07:54→20:30)
[2020-08-24] MEDS: *HR* Enoxaparin 40 MG/0.4 ML SYRINGE SQ SCH ×2 (07:54→20:30)
[2020-08-24] MEDS: Aspirin Enteric Coated 81 MG Tablet PO SCH (07:54)
[2020-08-24] MEDS: Dexamethasone Sodium Phos/PF 10 MG/ML VIAL IVP SCH (07:54)
[2020-08-24] MEDS: Sennosides/Docusate Sodium TABLET PO SCH ×2 (07:54→20:30)
[2020-08-24] MEDS: Fluticasone Propionate Nasal 50 MCG/SPRAY BOTTLE NS SCH ×2 (07:55→20:31)
[2020-08-24] MEDS: Insulin LISPRO 300 UNITS/3 ML VIAL SQ SCH ×4 (07:55→20:31)
[2020-08-24] MEDS ORDERED: Furosemide 20 MG/2 ML VIAL IVP SCH (09:00)
[2020-08-24] MEDS ORDERED: Insulin DETEMIR 100 UNIT/ML X5UNITS SQ SCH (09:00)
[2020-08-24 09:18] LABS: C-Reactive Protein 26 mg/L (Less than 10)
[2020-08-24] MEDS ORDERED: Insulin DETEMIR 100 UNIT/ML X5UNITS SQ ONE (13:47)
[2020-08-24] MEDS ORDERED: MOM Conc 10 ML UD.LIQ PO ONE (13:51)
[2020-08-24] MEDS: Saline Nasal Spray 44 ML BOTTLE NS PRN (20:31)
[2020-08-24] MEDS: Artificial Tears SOLN 15 ML BOTTLE BOTH EYES SCH (20:31)
[2020-08-25] MEDS: Ipratropium 1 PUFF INHALER IH SCH ×5 (03:31→19:52)
[2020-08-25 04:40] LABS: Basophils % 0.2 %; Eosinophils # 0.1 K/mcL (0.0-0.6); Hematocrit 36.9 % (35.3-44.9); Hemoglobin 11.9 g/dL (11.5-15.4); Immature Granulocytes % 2.8 % (0-4); Lymphocytes # 1.5 K/mcL (0.6-4.6); Lymphocytes % 10.3 %; Mean Corpuscular HGB Conc 32.2 g/dL (31.6-35.5); Mean Corpuscular Hemoglobin 29.5 pg (28.0-33.3); Mean Corpuscular Volume 91.3 fL (83.0-100.0); Mean Platelet Volume 10.5 fL (9.4-12.4); Monocytes # 0.6 K/mcL (0.0-1.3); Monocytes % 4.1 %; Neutrophils # 11.5 K/mcL (1.6-8.9); Platelet Count 320 K/mcL (140-400); Red Blood Count 4.04 M/mcL (3.82-4.97); Red Cell Distribution Width 14.6 % (11.5-14.5); Segmented Neutrophils % 81.6 %; White Blood Count 14.1 K/mcL (4.3-11.1)
[2020-08-25 04:58] LABS: BUN/Creatinine Ratio 55 (6-26); Blood Urea Nitrogen 29 mg/dL (8-23); Calcium 8.4 mg/dL (8.6-10.3); Carbon Dioxide 28 mEq/L (23-29); Chloride 97 mEq/L (98-107); Glucose 152 mg/dL (70-105); Magnesium 2.2 mg/dL (1.6-2.6); Osmolality,Calculated 285 (280-300); Phosphorous 3.2 mg/dL (2.7-4.5); Potassium 4.1 mEq/L (3.5-5.1); Sodium 133 mEq/L (136-145); eGFR For African Americans > 60 (> 60); eGFR For Non-African Americans > 60 (> 60)
[2020-08-25] MEDS: *HR* Enoxaparin 40 MG/0.4 ML SYRINGE SQ SCH ×2 (08:05→19:36)
[2020-08-25] MEDS: Multivit/Ca/Min/Fe/FA 1 TAB TABLET PO SCH (08:05)
[2020-08-25] MEDS: Sennosides/Docusate Sodium TABLET PO SCH ×2 (08:05→19:36)
[2020-08-25] MEDS: Aspirin Enteric Coated 81 MG Tablet PO SCH (08:05)
[2020-08-25] MEDS: Furosemide 20 MG/2 ML VIAL IVP SCH ×2 (08:05→17:08)
[2020-08-25] MEDS: Cholecalciferol (D-3) 1,000 UNIT (25MCG) TABLET PO SCH (08:05)
[2020-08-25] MEDS: Lactobacillus 1 EACH CAP.SPRINK PO SCH ×2 (08:06→19:37)
[2020-08-25] MEDS: Dexamethasone Sodium Phos/PF 10 MG/ML VIAL IVP SCH (08:06)
[2020-08-25] MEDS: Insulin DETEMIR 100 UNIT/ML X5UNITS SQ SCH (08:06)
[2020-08-25] MEDS: Fluticasone Propionate Nasal 50 MCG/SPRAY BOTTLE NS SCH ×2 (08:07→19:55)
[2020-08-25] MEDS: Insulin LISPRO 300 UNITS/3 ML VIAL SQ SCH ×4 (08:27→19:55)
[2020-08-25] MEDS: Artificial Tears SOLN 15 ML BOTTLE BOTH EYES SCH (19:55)
[2020-08-26] MEDS: Ipratropium 1 PUFF INHALER IH SCH ×7 (00:07→23:27)
[2020-08-26] MEDS: Insulin LISPRO 300 UNITS/3 ML VIAL SQ SCH ×4 (10:21→20:27)
[2020-08-26] MEDS: Aspirin Enteric Coated 81 MG Tablet PO SCH (10:27)
[2020-08-26] MEDS: Lactobacillus 1 EACH CAP.SPRINK PO SCH ×2 (10:27→20:08)
[2020-08-26] MEDS: Furosemide 20 MG/2 ML VIAL IVP SCH (10:27)
[2020-08-26] MEDS: Cholecalciferol (D-3) 1,000 UNIT (25MCG) TABLET PO SCH (10:27)
[2020-08-26] MEDS: Insulin DETEMIR 100 UNIT/ML X5UNITS SQ SCH (10:27)
[2020-08-26] MEDS: *HR* Enoxaparin 40 MG/0.4 ML SYRINGE SQ SCH ×2 (10:28→20:08)
[2020-08-26] MEDS: Dexamethasone Sodium Phos/PF 10 MG/ML VIAL IVP SCH (10:28)
[2020-08-26] MEDS: Multivit/Ca/Min/Fe/FA 1 TAB TABLET PO SCH (10:28)
[2020-08-26] MEDS: Sennosides/Docusate Sodium TABLET PO SCH ×2 (10:28→20:08)
[2020-08-26] MEDS: Fluticasone Propionate Nasal 50 MCG/SPRAY BOTTLE NS SCH ×2 (10:30→20:08)
[2020-08-26 11:47] LABS: Basophils % 0.1 %; Eosinophils # 0.3 K/mcL (0.0-0.6); Eosinophils % 1.8 %; Hematocrit 39.1 % (35.3-44.9); Hemoglobin 12.4 g/dL (11.5-15.4); Immature Granulocytes % 2.4 % (0-4); Lymphocytes # 1.4 K/mcL (0.6-4.6); Lymphocytes % 10.3 %; Mean Corpuscular HGB Conc 31.7 g/dL (31.6-35.5); Mean Corpuscular Hemoglobin 28.8 pg (28.0-33.3); Mean Corpuscular Volume 90.7 fL (83.0-100.0); Mean Platelet Volume 10.5 fL (9.4-12.4); Monocytes # 0.5 K/mcL (0.0-1.3); Monocytes % 3.8 %; Neutrophils # 11.1 K/mcL (1.6-8.9); Platelet Count 327 K/mcL (140-400); Red Blood Count 4.31 M/mcL (3.82-4.97); Red Cell Distribution Width 14.7 % (11.5-14.5); Segmented Neutrophils % 81.6 %; White Blood Count 13.6 K/mcL (4.3-11.1)
[2020-08-26 12:27] LABS: BUN/Creatinine Ratio 39 (6-26); Blood Urea Nitrogen 30 mg/dL (8-23); Calcium 8.8 mg/dL (8.6-10.3); Carbon Dioxide 27 mEq/L (23-29); Chloride 94 mEq/L (98-107); Glucose 169 mg/dL (70-105); Osmolality,Calculated 284 (280-300); Potassium 3.6 mEq/L (3.5-5.1); Sodium 132 mEq/L (136-145); eGFR For African Americans > 60 (> 60); eGFR For Non-African Americans > 60 (> 60)
[2020-08-26] MEDS: GuaiFENesin/Dextromethorphan TABLET PO SCH ×2 (16:46→20:08)
[2020-08-26] MEDS: Artificial Tears SOLN 15 ML BOTTLE BOTH EYES SCH (20:08)
[2020-08-26] MEDS: Benzonatate 100 MG CAPSULE PO PRN (23:32)
[2020-08-27] MEDS: Ipratropium 1 PUFF INHALER IH SCH ×6 (03:46→23:24)
[2020-08-27 04:47] LABS: Hematocrit 38.2 % (35.3-44.9); Hemoglobin 12.2 g/dL (11.5-15.4); Mean Corpuscular HGB Conc 31.9 g/dL (31.6-35.5); Mean Corpuscular Hemoglobin 28.9 pg (28.0-33.3); Mean Corpuscular Volume 90.5 fL (83.0-100.0); Mean Platelet Volume 10.3 fL (9.4-12.4); Platelet Count 290 K/mcL (140-400); Red Blood Count 4.22 M/mcL (3.82-4.97); Red Cell Distribution Width 14.6 % (11.5-14.5); White Blood Count 12.5 K/mcL (4.3-11.1)
[2020-08-27 04:58] LABS: BUN/Creatinine Ratio 58 (6-26); Blood Urea Nitrogen 26 mg/dL (8-23); Calcium 8.4 mg/dL (8.6-10.3); Carbon Dioxide 26 mEq/L (23-29); Chloride 97 mEq/L (98-107); Glucose 129 mg/dL (70-105); Osmolality,Calculated 280 (280-300); Potassium 3.9 mEq/L (3.5-5.1); Sodium 132 mEq/L (136-145); eGFR For African Americans > 60 (> 60); eGFR For Non-African Americans > 60 (> 60)
[2020-08-27] MEDS: Dexamethasone Sodium Phos/PF 10 MG/ML VIAL IVP SCH (07:42)
[2020-08-27] MEDS: Multivit/Ca/Min/Fe/FA 1 TAB TABLET PO SCH (07:42)
[2020-08-27] MEDS: *HR* Enoxaparin 40 MG/0.4 ML SYRINGE SQ SCH ×2 (07:42→22:26)
[2020-08-27] MEDS: Sennosides/Docusate Sodium TABLET PO SCH ×2 (07:43→22:25)
[2020-08-27] MEDS: Insulin LISPRO 300 UNITS/3 ML VIAL SQ SCH ×4 (07:43→22:27)
[2020-08-27] MEDS: Cholecalciferol (D-3) 1,000 UNIT (25MCG) TABLET PO SCH (07:43)
[2020-08-27] MEDS: Aspirin Enteric Coated 81 MG Tablet PO SCH (07:43)
[2020-08-27] MEDS: GuaiFENesin/Dextromethorphan TABLET PO SCH ×2 (07:43→22:25)
[2020-08-27] MEDS: Lactobacillus 1 EACH CAP.SPRINK PO SCH ×2 (07:43→22:25)
[2020-08-27] MEDS: Furosemide 20 MG TABLET PO SCH (07:43)
[2020-08-27] MEDS: Insulin DETEMIR 100 UNIT/ML X5UNITS SQ SCH (07:45)
[2020-08-27] MEDS: Fluticasone Propionate Nasal 50 MCG/SPRAY BOTTLE NS SCH ×2 (08:12→22:26)
[2020-08-27] MEDS: Artificial Tears SOLN 15 ML BOTTLE BOTH EYES SCH (22:23)
[2020-08-27] MEDS: Benzonatate 100 MG CAPSULE PO PRN (22:51)
[2020-08-28] MEDS: Ipratropium 1 PUFF INHALER IH SCH ×6 (03:36→23:13)
[2020-08-28 06:39] LABS: Hematocrit 37.4 % (35.3-44.9); Hemoglobin 11.7 g/dL (11.5-15.4); Mean Corpuscular HGB Conc 31.3 g/dL (31.6-35.5); Mean Corpuscular Hemoglobin 28.9 pg (28.0-33.3); Mean Corpuscular Volume 92.3 fL (83.0-100.0); Mean Platelet Volume 10.5 fL (9.4-12.4); Platelet Count 244 K/mcL (140-400); Red Blood Count 4.05 M/mcL (3.82-4.97); Red Cell Distribution Width 14.8 % (11.5-14.5); White Blood Count 14.2 K/mcL (4.3-11.1)
[2020-08-28 06:59] LABS: BUN/Creatinine Ratio 56 (6-26); Blood Urea Nitrogen 33 mg/dL (8-23); Calcium 8.6 mg/dL (8.6-10.3); Carbon Dioxide 29 mEq/L (23-29); Chloride 99 mEq/L (98-107); Glucose 101 mg/dL (70-105); Osmolality,Calculated 289 (280-300); Potassium 3.6 mEq/L (3.5-5.1); Sodium 136 mEq/L (136-145); eGFR For African Americans > 60 (> 60); eGFR For Non-African Americans > 60 (> 60)
[2020-08-28] MEDS: Insulin LISPRO 300 UNITS/3 ML VIAL SQ SCH ×4 (08:52→21:38)
[2020-08-28] MEDS: *HR* Enoxaparin 40 MG/0.4 ML SYRINGE SQ SCH ×2 (08:56→21:36)
[2020-08-28] MEDS: Dexamethasone 4 MG/ML VIAL IVP SCH (08:57)
[2020-08-28] MEDS: Insulin DETEMIR 100 UNIT/ML X5UNITS SQ SCH (08:57)
[2020-08-28] MEDS: Aspirin Enteric Coated 81 MG Tablet PO SCH (08:57)
[2020-08-28] MEDS: Lactobacillus 1 EACH CAP.SPRINK PO SCH ×2 (08:58→21:36)
[2020-08-28] MEDS: Multivit/Ca/Min/Fe/FA 1 TAB TABLET PO SCH (08:58)
[2020-08-28] MEDS: Cholecalciferol (D-3) 1,000 UNIT (25MCG) TABLET PO SCH (08:58)
[2020-08-28] MEDS: Furosemide 20 MG TABLET PO SCH (08:59)
[2020-08-28] MEDS: Acetaminophen 325 MG TABLET PO PRN (09:13)
[2020-08-28] MEDS: Fluticasone Propionate Nasal 50 MCG/SPRAY BOTTLE NS SCH ×2 (09:14→21:37)
[2020-08-28] MEDS: GuaiFENesin/Dextromethorphan TABLET PO SCH ×2 (09:20→21:36)
[2020-08-28] MEDS: Sennosides/Docusate Sodium TABLET PO SCH ×2 (09:20→21:35)
[2020-08-28] MEDS: Artificial Tears SOLN 15 ML BOTTLE BOTH EYES SCH (21:38)
[2020-08-28] MEDS: Benzonatate 100 MG CAPSULE PO PRN (22:09)
[2020-08-29] MEDS: Ipratropium 1 PUFF INHALER IH SCH ×6 (03:34→23:42)
[2020-08-29 05:50] LABS: Hematocrit 34.6 % (35.3-44.9); Hemoglobin 10.9 g/dL (11.5-15.4); Mean Corpuscular HGB Conc 31.5 g/dL (31.6-35.5); Mean Corpuscular Hemoglobin 29.5 pg (28.0-33.3); Mean Corpuscular Volume 93.8 fL (83.0-100.0); Mean Platelet Volume 10.4 fL (9.4-12.4); Platelet Count 226 K/mcL (140-400); Red Blood Count 3.69 M/mcL (3.82-4.97); Red Cell Distribution Width 15.2 % (11.5-14.5); White Blood Count 9.8 K/mcL (4.3-11.1)
[2020-08-29 06:11] LABS: BUN/Creatinine Ratio 46 (6-26); Blood Urea Nitrogen 25 mg/dL (8-23); Calcium 8.4 mg/dL (8.6-10.3); Carbon Dioxide 29 mEq/L (23-29); Chloride 100 mEq/L (98-107); Glucose 160 mg/dL (70-105); Osmolality,Calculated 288 (280-300); Potassium 4.2 mEq/L (3.5-5.1); Sodium 135 mEq/L (136-145); eGFR For African Americans > 60 (> 60); eGFR For Non-African Americans > 60 (> 60)
[2020-08-29] MEDS: Insulin LISPRO 300 UNITS/3 ML VIAL SQ SCH ×4 (07:30→19:56)
[2020-08-29] MEDS: Lactobacillus 1 EACH CAP.SPRINK PO SCH ×2 (07:39→19:37)
[2020-08-29] MEDS: GuaiFENesin/Dextromethorphan TABLET PO SCH ×2 (07:39→19:37)
[2020-08-29] MEDS: Sennosides/Docusate Sodium TABLET PO SCH ×2 (07:39→19:37)
[2020-08-29] MEDS: Furosemide 20 MG TABLET PO SCH (07:39)
[2020-08-29] MEDS: Dexamethasone 4 MG/ML VIAL IVP SCH (07:39)
[2020-08-29] MEDS: *HR* Enoxaparin 40 MG/0.4 ML SYRINGE SQ SCH ×2 (07:39→19:37)
[2020-08-29] MEDS: Cholecalciferol (D-3) 1,000 UNIT (25MCG) TABLET PO SCH (07:39)
[2020-08-29] MEDS: Multivit/Ca/Min/Fe/FA 1 TAB TABLET PO SCH (07:39)
[2020-08-29] MEDS: Aspirin Enteric Coated 81 MG Tablet PO SCH (07:39)
[2020-08-29] MEDS: Fluticasone Propionate Nasal 50 MCG/SPRAY BOTTLE NS SCH ×2 (07:40→19:35)
[2020-08-29] MEDS: Insulin DETEMIR 100 UNIT/ML X5UNITS SQ SCH (12:39)
[2020-08-29 15:43] LABS: Adenovirus Not Detected (Not Detect); Bordetella Pertussis Not Detected (Not Detect); Chlamydophila pneumoniae Not Detected (Not Detect); Coronavirus 229E Not Detected (Not Detect); Coronavirus HKU1 Not Detected (Not Detect); Coronavirus NL63 Not Detected (Not Detect); Coronavirus OC43 Not Detected (Not Detect); Human Metapneumovirus Not Detected (Not Detect); Human Rhinovirus/Enterovirus Not Detected (Not Detect); Influenza A Subtype 2009 H1 Not Detected (Not Detect); Influenza B Not Detected (Not Detect); Mycoplasma pneumoniae Not Detected (Not Detect); Parainfluenza Virus 1 Not Detected (Not Detect); Parainfluenza Virus 2 Not Detected (Not Detect); Parainfluenza Virus 3 Not Detected (Not Detect); Parainfluenza Virus 4 Not Detected (Not Detect); Respiratory Syncytial Virus Not Detected (Not Detect); SARS-CoV-2 Not Detected (Not Detect)
[2020-08-29] MEDS: Artificial Tears SOLN 15 ML BOTTLE BOTH EYES SCH (19:35)
[2020-08-29] MEDS: Benzonatate 100 MG CAPSULE PO PRN (23:59)
[2020-08-30] MEDS: Ipratropium 1 PUFF INHALER IH SCH ×5 (04:15→19:51)
[2020-08-30 04:22] LABS: Hematocrit 35.3 % (35.3-44.9); Hemoglobin 11.1 g/dL (11.5-15.4); Mean Corpuscular HGB Conc 31.4 g/dL (31.6-35.5); Mean Corpuscular Hemoglobin 29.4 pg (28.0-33.3); Mean Corpuscular Volume 93.6 fL (83.0-100.0); Mean Platelet Volume 10.1 fL (9.4-12.4); Platelet Count 211 K/mcL (140-400); Red Blood Count 3.77 M/mcL (3.82-4.97); Red Cell Distribution Width 15.4 % (11.5-14.5); White Blood Count 10.9 K/mcL (4.3-11.1)
[2020-08-30 04:44] LABS: BUN/Creatinine Ratio 44 (6-26); Blood Urea Nitrogen 24 mg/dL (8-23); Calcium 8.1 mg/dL (8.6-10.3); Carbon Dioxide 28 mEq/L (23-29); Chloride 101 mEq/L (98-107); Glucose 105 mg/dL (70-105); Osmolality,Calculated 286 (280-300); Potassium 3.8 mEq/L (3.5-5.1); Sodium 136 mEq/L (136-145); eGFR For African Americans > 60 (> 60); eGFR For Non-African Americans > 60 (> 60)
[2020-08-30] MEDS: Insulin LISPRO 300 UNITS/3 ML VIAL SQ SCH ×4 (08:15→21:14)
[2020-08-30] MEDS: *HR* Enoxaparin 40 MG/0.4 ML SYRINGE SQ SCH ×2 (08:44→21:10)
[2020-08-30] MEDS: Cholecalciferol (D-3) 1,000 UNIT (25MCG) TABLET PO SCH (08:45)
[2020-08-30] MEDS: Aspirin Enteric Coated 81 MG Tablet PO SCH (08:45)
[2020-08-30] MEDS: Furosemide 20 MG TABLET PO SCH (08:45)
[2020-08-30] MEDS: Lactobacillus 1 EACH CAP.SPRINK PO SCH ×2 (08:45→21:10)
[2020-08-30] MEDS: Multivit/Ca/Min/Fe/FA 1 TAB TABLET PO SCH (08:45)
[2020-08-30] MEDS: Sennosides/Docusate Sodium TABLET PO SCH ×2 (08:45→21:10)
[2020-08-30] MEDS: GuaiFENesin/Dextromethorphan TABLET PO SCH ×2 (08:45→21:10)
[2020-08-30] MEDS: Insulin DETEMIR 100 UNIT/ML X5UNITS SQ SCH (08:46)
[2020-08-30] MEDS: Fluticasone Propionate Nasal 50 MCG/SPRAY BOTTLE NS SCH ×2 (08:46→21:10)
[2020-08-30] MEDS: polyethylene glycoL 3350 17 GM POWD.PACK PO PRN (08:58)
[2020-08-30] MEDS ORDERED: Dexamethasone 4 MG/ML VIAL IVP ONE (09:00)
[2020-08-30] MEDS ORDERED: Bisacodyl 10 MG RECTAL SUPPOSITORY RC PRN (12:37)
[2020-08-30] MEDS: Artificial Tears SOLN 15 ML BOTTLE BOTH EYES SCH (21:11)
[2020-08-30] MEDS: Benzonatate 100 MG CAPSULE PO PRN (21:14)
[2020-08-30] MEDS: Acetaminophen 325 MG TABLET PO PRN (21:14)
[2020-08-31] MEDS: Ipratropium 1 PUFF INHALER IH SCH ×4 (00:07→12:17)
[2020-08-31 03:17] LABS: Basophils % 0.2 %; Eosinophils # 0.2 K/mcL (0.0-0.6); Eosinophils % 1.5 %; Hematocrit 34.5 % (35.3-44.9); Hemoglobin 10.7 g/dL (11.5-15.4); Immature Granulocytes % 3.3 % (0-4); Lymphocytes # 1.4 K/mcL (0.6-4.6); Lymphocytes % 14.9 %; Mean Corpuscular Hemoglobin 28.8 pg (28.0-33.3); Monocytes # 0.5 K/mcL (0.0-1.3); Monocytes % 4.8 %; Neutrophils # 7.3 K/mcL (1.6-8.9); Platelet Count 191 K/mcL (140-400); Red Blood Count 3.71 M/mcL (3.82-4.97); Red Cell Distribution Width 15.3 % (11.5-14.5); Segmented Neutrophils % 75.3 %; White Blood Count 9.7 K/mcL (4.3-11.1)
[2020-08-31 03:38] LABS: BUN/Creatinine Ratio 44 (6-26); Blood Urea Nitrogen 20 mg/dL (8-23); Calcium 8.3 mg/dL (8.6-10.3); Carbon Dioxide 28 mEq/L (23-29); Chloride 102 mEq/L (98-107); Glucose 126 mg/dL (70-105); Osmolality,Calculated 288 (280-300); Potassium 4.1 mEq/L (3.5-5.1); Sodium 137 mEq/L (136-145); eGFR For African Americans > 60 (> 60); eGFR For Non-African Americans > 60 (> 60)
[2020-08-31] MEDS: Insulin LISPRO 300 UNITS/3 ML VIAL SQ SCH ×2 (07:17→11:33)
[2020-08-31] MEDS: *HR* Enoxaparin 40 MG/0.4 ML SYRINGE SQ SCH (07:37)
[2020-08-31] MEDS: Insulin DETEMIR 100 UNIT/ML X5UNITS SQ SCH (07:37)
[2020-08-31] MEDS: Cholecalciferol (D-3) 1,000 UNIT (25MCG) TABLET PO SCH (07:38)
[2020-08-31] MEDS: GuaiFENesin/Dextromethorphan TABLET PO SCH (07:38)
[2020-08-31] MEDS: Sennosides/Docusate Sodium TABLET PO SCH (07:38)
[2020-08-31] MEDS: Furosemide 20 MG TABLET PO SCH (07:38)
[2020-08-31] MEDS: Lactobacillus 1 EACH CAP.SPRINK PO SCH (07:38)
[2020-08-31] MEDS: Aspirin Enteric Coated 81 MG Tablet PO SCH (07:38)
[2020-08-31] MEDS: Multivit/Ca/Min/Fe/FA 1 TAB TABLET PO SCH (07:38)
[2020-08-31] MEDS: Fluticasone Propionate Nasal 50 MCG/SPRAY BOTTLE NS SCH (07:43)
[2020-08-31] MEDS ORDERED: dexAMETHasone 4 MG TABLET PO SCH (09:00)
[2020-08-31] MEDS: Benzonatate 100 MG CAPSULE PO PRN (10:45)
[2020-08-31 11:15] VITALS: BP 115/68
== END 2020-08-31 14:04 | DRG 177 ==
LOC: 2NENU → SUATTDRO 08-08 16:41 → 2NENU 08-20 07:46 → 2ANU 08-29 21:52
PROVIDERS: ADMIT Internal Medicine; ATTEND Internal Medicine